=== PATIENT | female | born 1985 | race Asian ===

== ENCOUNTER 2017-12-08 10:20 | Emergency (ER) | payer OTHER, SELFPAY ==
[2017-12-08 10:40] VITALS: BP 127/77; PULSE 92; RESP 20; TEMP 36.4; O2SAT 100; BMI 20.9
--- NOTE | 2017-12-08 11:00 | ED.NECK ---
HPI - Neck Pain/Injury General Chief Complaint: Neck Pain/Injury Stated Complaint: sore throat History of Present Illness HPI Narrative: HPI 32-year-old female presents for evaluation of mild right your discomfort, and cervical lymphadenopathy of several days' duration. Patient is accompanied by her daughter and son, son had similar symptoms that resolved over several days and preceded that of the patient's as well as virtually identical symptoms in her foreign [id number] daughter. Denies rash, neck stiffness, headache, changes in vision or hearing, or ear pain. M/S/F/SocHx notable for: please see HPI; remainder reviewed with patient and in chart. ROS: Negative constitutional, eye, cardiovascular, pulmonary, GI, , MSK, skin, neurologic, psychiatric, endocrine unless noted in the HPI. Exam HR 92, BP 127/77, RR 20, T 97.6 ?F, SaO2 100 % on room air; at 10:40 AM. Gen: Pleasant, non-toxic appearing, resting comfortably. HEENT: Normocephalic, atraumatic. * Ears - left ear with a serious effusion, right TM clear, bilateral external auditory canals without erythema, inflammation, or swelling, bilateral mastoids nontender without overlying erythema, swelling, or warmth. * Eyes - Bilateral eyes without injection, swelling, or discharge, no proptosis or periorbital erythema, swelling, warmth, or tenderness. * Mouth - Anterior oropharynx with MMM, no lesions appreciated, floor of the mouth is soft and without swelling. Posterior oropharynx with mild erythema but without swelling, exudate, lesions, uvula midline. * Nose - Nares with scant crusting and discharge. * Neck - Neck supple with a small mobile enlarged right superior cervical chain lymph node, otherwise no lymphadenopathy appreciated bilaterally. Resp: Clear to auscultation bilaterally, normal work of breathing without accessory muscle usage.Infrequent mildly productive cough observed. Card: Regular rate and rhythm with no murmurs, rubs or gallops. Extremities warm and well perfused. GI: Non-tender to palpation throughout all quadrants, no masses or organomegaly appreciated. : Deferred MSK: No visible deformities, strength and tone without visually appreciable deficit. Neuro: AO x 3, no facial asymmetry, vision and hearing WNL. Heme/Lymph: Deferred Skin: Normal color with no visible lesions (other than noted above). Psych: Mood and affect appropriate. MDM Previous chart, nursing note, and vitals reviewed. A: 32-year-old female presents for evaluation of mild right your discomfort, and cervical lymphadenopathy of several days' duration. DDx: viral rhinosinusitis, bacterial rhinosinusitis, pharyngitis (HSV vs viral NOS vs GAS vs bacterial NOS)], EBV, peritonsillar cellulitis, COMM[employer]IST, RPA, Sushant's angina, epiglottitis. Evaluation: Overall presentation most consistent with a viral rhinosinutisis, given the duration of symptoms and overall well compensated appearance, antibiotic treatment is not currently indicated, rapid strep not indicated, oral mucosa without lesions consistent with HSV or candidiasis, low suspicion for peritonsillar cellulitis or abscess given the absence of asymmetric swelling or uvular deviation, RPA is unlikely as the patient can comfortably flex and extend their neck and swallow without difficulty. As phonation is intact and breathing is unlabored doubt epiglottitis. The floor of the mouth is without evidence of Sushant's angina. Lemierre's disease was considered but as the patient does not have signs of [employer] or sepsis, further evaluation was not indicated. ED Course: No clinically significant changes. Disposition: Discharge with return to care as needed. Return to care indications provided. Impression: Rhinosinusitis. (please reference below for remainder of encounter information) Patient was notified of their elevated blood pressure and recommended to follow up with their primary care physician. As the patient is without evidence of acute end organ dysfunction no further emergent evaluation is indicated as per the 2013 [facility] clinical policy. Related Data Allergies Allergy/AdvReac Type Severity Reaction Status Date / Time amoxicillin Allergy Verified 12/08/17 10:48 erythromycin base Allergy Verified 12/08/17 10:48 gentamicin Allergy Verified 12/08/17 10:48 [facility] Social History Smoking Status: Never smoker Exam Initial Vital Signs Initial Vital Signs: Vital Signs Temperature 97.6 F 12/08/17 10:40 Pulse Rate 92 H 12/08/17 10:40 Respiratory Rate 20 12/08/17 10:40 Blood Pressure 127/77 H 12/08/17 10:40 Pulse Oximetry 100 12/08/17 10:40 Course Vital Signs - 8 hr 12/08/17 10:40 Temperature 97.6 F Pulse Rate 92 H Respiratory Rate 20 Blood Pressure 127/77 H Pulse Oximetry 100
== END 2017-12-08 11:13 | disposition home or self-care (01) ==
PROVIDERS: Emergency Provider Emergency Medicine
DX: J32.9 Chronic sinusitis, unspecified (principal)
CPT/HCPCS: 99282

== ENCOUNTER → 2020-04-09 15:34 | Outpatient (CLI) | payer OTHER, SELFPAY ==
--- NOTE | 2020-04-09 15:36 | DI.US.S_ITS ---
PROCEDURE: US THYROID INDICATIONS: significant lymphadenopathy and enlarged thyroid TECHNIQUE: Real-time scanning was performed of the thyroid gland, with image documentation. COMPARISON: None. FINDINGS: Right: Thyroid lobe measures 4.4 x 1.1 x 1.5 cm, and is homogeneous in echotexture. Left: Thyroid lobe measures 4.3 x 1.0 x 1.5 cm, and is homogenous in echotexture. Isthmus: 3.6 mm thick. In the area of palpable abnormality in the left neck, no sonographic abnormality is identified. IMPRESSION: 1. Normal ultrasound appearance of thyroid gland. No thyromegaly. 2. No enlarged lymph node. 3. No sonographic abnormality in the area of concern. If clinical symptoms persist or clinical suspicion for pathology is high, contrast-enhanced CT is suggested for further evaluation. Dictated by: Mark Ambrosio M.D. on 04/09/2020 at 22:15 Approved by: Mark Ambrosio M.D. on 04/10/2020 at 8:53
== END ==
PROVIDERS: PCP Family Medicine; Referring Provider Family Medicine; Visit Provider Family Medicine
DX: R59.1 Generalized enlarged lymph nodes (principal); E04.9 Nontoxic goiter, unspecified
CPT/HCPCS: 76536

== ENCOUNTER → 2020-04-13 12:26 | Outpatient (CLI) | payer OTHER, SELFPAY ==
[2020-04-13 15:20] LABS: Add Manual Diff / Slide Review NO; Basophils Absolute Auto 0 /uL (0-100); Basophils Percent Auto 0.9 % (0-2); Eosinophils Absolute Auto 100 /uL (0-450); Eosinophils Percent Auto 3.3 % (2-4); Hematocrit 38.3 % (36-46); Hemoglobin 12.5 g/dL (12.0-16.0); Lymphocytes Absolute Auto 1600 /uL (1100-4500); Lymphocytes Percent Auto 37.6 % (25-40); Mean Corpuscular HGB Conc 32.7 % (30-36); Mean Corpuscular Hemoglobin 30.9 PG (26-34); Mean Corpuscular Volume 94.7 fL (80-100); Monocytes Absolute Auto 200 /uL (0-900); Neutrophils Absolute Auto 2300 /uL (1500-7000); Neutrophils Percent Auto 53.2 % (50-75); Platelet Count 208 X10^3/uL (150-400); Red Blood Cell Count 4.04 X10^6/uL (4.0-5.2); Red Cell Distribution Width 12.8 % (11.6-14.8); White Blood Cell Count 4.3 X10^3/uL (4.5-11.0)
[2020-04-13 15:36] LABS: Alanine Aminotransferase 20 IU/L (<35); Albumin Globulin Ratio 1.4 (1.0-2.8); Alkaline Phosphatase 44 U/L (38-126); Aspartate Aminotransferase 25 IU/L (14-36); BUN Creatinine Ratio 27.7 (6-22); Bilirubin Total 0.4 mg/dL (0.2-1.3); Blood Urea Nitrogen 18 mg/dL (7-17); Carbon Dioxide 30 mmol/L (22-32); Chloride 103 mmol/L (98-107); Estimated Glomerular Filt Rate > 60.0 mL/min (>60); Globulin 3.7 g/dL (1.7-4.1); Glucose 95 mg/dL (70-100); HDL Cholesterol 72 mg/dL (40-60); HEMOLYSIS < 15 (0-50); Potassium 4.5 mmol/L (3.4-5.1); Sodium 141 mmol/L (137-145); Total Protein 8.7 g/dL (6.3-8.2); Triglycerides 47 mg/dL (35-150)
[2020-04-13 15:42] LABS: Cholesterol 357 mg/dL (140-199); LDL Cholesterol Calculated 276 mg/dL (<100)
[2020-04-13 16:02] LABS: Thyroid Stimulating Hormone 1.67 uIU/mL (0.47-4.68)
== END ==
PROVIDERS: PCP Family Medicine; Referring Provider Family Medicine; Visit Provider Family Medicine
DX: Z00.00 Encounter for general adult medical examination without abnormal findings (principal)
CPT/HCPCS: 36415; 80053; 80061; 84443; 85025

== ENCOUNTER → 2020-05-15 12:41 | Outpatient (CLI) | payer OTHER, SELFPAY ==
--- NOTE | 2020-05-15 12:42 | DI.MG.S_ITS ---
BILATERAL DIGITAL DIAGNOSTIC MAMMOGRAM 3D/2D: 05/15/2020 CLINICAL: Bilateral breast pain. Baseline exam. No prior exams were available for comparison. The tissue of both breasts is heterogeneously dense. This may lower the sensitivity of mammography. No significant masses, calcifications, or other findings are seen in either breast. IMPRESSION: NEGATIVE There is no abnormality seen in either breast to correspond with the pain, however, clinical followup is recommended. There is no mammographic evidence of malignancy. A 4 year screening mammogram is recommended at age 40. This exam was interpreted at Station ID: [id number]. NOTE: For mammograms, a report in lay terms will be sent to the patient. Approximately 15% of breast malignancies will not be visualized mammographically. In the management of a palpable breast mass, a negative mammogram must not discourage biopsy of a clinically suspicious lesion. Electronically Signed By: Hernan shelby/:05/15/2020 13:13:29 letter sent: Clinical Evaluation ACR BI-RADS Category 1: Negative [id number]
== END ==
PROVIDERS: PCP Family Medicine; Referring Provider Family Medicine; Visit Provider Family Medicine
DX: N64.4 Mastodynia (principal)
CPT/HCPCS: 77066; G0279

== ENCOUNTER → 2020-08-01 11:36 | Outpatient (CLI) | payer OTHER, SELFPAY ==
[2020-08-01 12:24] LABS: Cholesterol 288 mg/dL (140-199); HDL Cholesterol 85 mg/dL (40-60); LDL Cholesterol Calculated 191 mg/dL (<100); Triglycerides 61 mg/dL (35-150)
== END ==
PROVIDERS: PCP Family Medicine; Referring Provider Family Medicine; Visit Provider Family Medicine
DX: E78.5 Hyperlipidemia, unspecified (principal)
CPT/HCPCS: 36415; 80061

== ENCOUNTER → 2021-02-05 12:46 | Outpatient (CLI) | payer OTHER, SELFPAY ==
[2021-02-11 06:40] LABS: QuantiFERON Mitogen Value >10.00 IU/mL (.); QuantiFERON Nil Value 0.12 IU/mL (.); QuantiFERON TB Gold Plus Negative (Negative); QuantiFERON TB1 Ag Value 0.34 IU/mL (.); QuantiFERON TB2 Ag Value 0.21 IU/mL (.)
== END ==
PROVIDERS: PCP Family Medicine; Referring Provider Family Medicine; Visit Provider Family Medicine
DX: Z11.1 Encounter for screening for respiratory tuberculosis (principal)
CPT/HCPCS: 36415; 86480